=== PATIENT | female | born 1950 | race American Indian/Alaskan Native ===

== ENCOUNTER 2019-01-10 09:43 | Outpatient (CLI) | payer MEDICARE ==
--- NOTE | 2019-01-10 13:21 | Ultrasound Report ---
ULTRASOUND SOFT TISSUE HEAD AND NECK History: Right neck mass. Findings: There are no studies for comparison at this facility. Targeted ultrasound was performed at a palpable mass in the right side of the neck. The images demonstrate a complex cystic lesion measuring 4.2 x 1.5 x 2.3 cm. This lesion contains few irregular septations and mild debris. No obvious soft tissue component is appreciated on ultrasound. This lesion appears to be just inferior to the right submandibular gland. Impression: Complex cystic mass in the right side of the neck as outlined above. The etiology of this is unclear on ultrasound. This could be further evaluated with CT with contrast if needed.
== END 2019-01-10 09:44 | disposition home or self-care (01) ==
LOC: US 09:43
PROVIDERS: ATTEND Internal Medicine
DX: R22.1 Localized swelling, mass and lump, neck (principal)
CPT/HCPCS: 76536